=== PATIENT | female | born 1985 ===

== ENCOUNTER 2017-04-17 23:04 | Emergency (ER) | payer MEDICAID, OTHER ==
[2017-04-17 23:08] VITALS: BMI 29.2
[2017-04-17 23:10] VITALS: TEMP 98
[2017-04-17 23:13] VITALS: RESP 16
--- NOTE | 2017-04-17 23:22 | ED PDOC ---
Arrival/HPI - General Chief Complaint: High Blood Pressure Time Seen by Provider: 04/17/17 23:07 Historian: Patient - History of Present Illness Narrative History of Present Illness (Text): 04/17/17 23:22 Pau Guzman is a 32 year old female who presents to the Emergency department complaining of hypertension today. Patient states she was seen at an Urgent Care earlier today for high blood pressure with associated headache earlier today and was prescribed Naproxen. Patient states headache returned tonight and she presented for further evaluation. Patient reports an episode of left-sided chest pain yesterday, but denies any currently. Patient also reports abdominal pain, back pain, and a cyst to her wrist with discomfort to the area. Patient denies any fever, chills, shortness of breath, nausea, vomiting, diarrhea, urinary symptoms, neck pain, vision changes, dizziness, focal neurological deficits, or any other complaints. Symptom Onset: Gradual Symptom Course: Unchanged Activities at Onset: Light Context: Home Past Medical History - Provider Review Nursing Documentation Reviewed: Yes - Past History Past History: No Previous - Infectious Disease Hx of Infectious Diseases: None - Tetanus Immunization Tetanus Immunization: Unknown - Past Medical History Past Medical History: No Previous - Psychiatric Hx Substance Use: No - Past Surgical History Past Surgical History: No Previous - Surgical History Hx Section: Yes - Suicidal Assessment Feels Threatened In Home Enviroment: No Family/Social History - Physician Review Nursing Documentation Reviewed: Yes Family/Social History: Unknown Family HX Smoking Status: Never Smoked Hx Alcohol Use: No Hx Substance Use: No Hx Substance Use Treatment: No Allergies/Home Meds Allergies/Adverse Reactions: Allergies No Known Allergies Allergy (Verified 04/17/17 23:08) Review of Systems - Physician Review All systems were reviewed & negative as marked: Yes - Review of Systems Constitutional: Normal. absent: Fevers Eyes: Normal ENT: Normal Respiratory: Normal. absent: SOB, Cough Cardiovascular: Chest Pain Gastrointestinal: Abdominal Pain. absent: Diarrhea, Nausea, Vomiting Genitourinary Female: Normal. absent: Dysuria, Frequency, Hematuria, Urine Output Changes Musculoskeletal: Back Pain. absent: Neck Pain Skin: Other (+right wrist lump). absent: Rash Neurological: Normal. absent: Headache, Dizziness Endocrine: Normal Hemo/Lymphatic: Normal Psychiatric: Normal Physical Exam Vital Signs Reviewed: Yes Vital Signs Temp Pulse Resp BP Pulse Ox 04/18/17 02:11 78 16 132/89 100 04/18/17 01:27 74 145/93 H 04/18/17 00:49 68 16 149/102 H 100 04/17/17 23:10 98.0 F 77 16 152/99 H 99 04/17/17 23:09 98.0 F 76 18 152/99 H 99 Temperature: Afebrile Blood Pressure: Hypertensive Pulse: Regular Respiratory Rate: Normal Appearance: Positive for: Well-Appearing, Non-Toxic, Comfortable Pain Distress: None Mental Status: Positive for: Alert and Oriented X 3 - Systems Exam Head: Present: Atraumatic, Normocephalic Pupils: Present: PERRL Extroacular Muscles: Present: EOMI Conjunctiva: Present: Normal Mouth: Present: Moist Mucous Membranes Neck: Present: Normal Range of Motion. No: Meningeal Signs, MIDLINE TENDERNESS , Paraspinal Tenderness Respiratory/Chest: Present: Clear to Auscultation, Good Air Exchange. No: Respiratory Distress, Accessory Muscle Use Cardiovascular: Present: Regular Rate and Rhythm, Normal S1, S2. No: Murmurs Abdomen: Present: Normal Bowel Sounds. No: Tenderness, Distention, Peritoneal Signs Back: Present: Normal Inspection. No: CVA Tenderness, Midline Tenderness, Paraspinal Tenderness Upper Extremity: Present: Normal ROM, NORMAL PULSES, Neurovascularly Intact, Capillary Refill < 2s, Other (Right wrist ganglion cyst). No: Cyanosis, Edema, Tenderness, Erythema, Temperature Abnormalties, Deformity Lower Extremity: Present: Normal Inspection. No: Edema Neurological: Present: GCS=15, CN II-XII Intact, Speech Normal Skin: Present: Warm, Dry, Normal Color. No: Rashes Psychiatric: Present: Alert, Oriented x 3, Normal Insight, Normal Concentration Medical Decision Making ED Course and Treatment: 04/17/17 23:22 Impression: 32 year old female complaining of headache, high blood pressure, abdominal pain , chest pain, and back pain. Plan: -- EKG -- Labs, cardiac enzymes, amylase, lipase -- UA -- Reassess and disposition Progress Notes: 04/18/17 00:22 Reviewed EKG, NSR at [address]-segment elevations or depressions, no T-wave inversions, normal intervals. 04/18/17 01:26 Reviewed radiology, Chest X-ray shows no acute processes. XR Right Wrist shows no acute processes. 04/18/17 02:20 CT Head shows: Brain: No intracranial hemorrhage. No mass. No definite edema. Ventricles: No hydrocephalus. Bones/joints: No acute fracture. Soft tissues: Unremarkable. Sinuses: No acute sinusitis. Mastoid air cells: No mastoid effusion. Orbits: Unremarkable as visualized. IMPRESSION: 1. No definite acute intracranial abnormality. 04/18/17 02:23 On re-evaluation, patient feels better and is in no acute distress. I have discussed the results and plan with the patient, who expresses understanding. Patient in agreement with plan to be discharged home. Patient is stable for discharge. Patient was instructed to follow up with physician or return if symptoms worsen or new concerning symptoms arise. - Lab Interpretations Lab Results: 04/17/17 23:55 04/17/17 23:55 Lab Results 04/17/17 23:55: Sodium 139, Potassium 4.3, Chloride 103, Carbon Dioxide 26, Anion Gap 14, BUN 16, Creatinine 0.6 L, Est GFR ( Amer) > 60, Est GFR ( Non-Af Amer) > 60, Random Glucose 97, Calcium 9.8, Total Bilirubin 0.3, AST 29, ALT 35, Alkaline Phosphatase 59, Lactate Dehydrogenase 372, Total Creatine Kinase 88, Troponin I < 0.01, Total Protein 7.1, Albumin 4.1, Globulin 3.0, Albumin/Globulin Ratio 1.4, Amylase 54, Lipase 89 04/17/17 23:55: Urine Color Yellow, Urine Appearance Clear, Urine pH 7.0, Ur Specific [place] 1.010, Urine Protein Negative, Urine Glucose (UA) Negative, Urine Ketones Negative, Urine Blood Trace-intact H, Urine Nitrate Negative, Urine Bilirubin Negative, Urine Urobilinogen 0.2, Ur Leukocyte Esterase Negative , Urine RBC 0 - 2, Urine WBC 0 - 2, Ur Epithelial Cells 0 - 2 04/17/17 23:55: PT 10.4, INR 0.91 L, APTT 30.2 04/17/17 23:55: WBC 7.8, RBC 4.50, Hgb 12.8, Hct 37.8, MCV 84.0, MCH 28.4, MCHC 33.9, RDW 12.8, Plt Count 346, MPV 8.7, Gran % 48.8 L, Lymph % (Auto) 38.7 H, Hyde % (Auto) 9.2 H, Eos % (Auto) 3.0, Baso % (Auto) 0.3, Gran # 3.79, Lymph # ( Auto) 3.0, Hyde # (Auto) 0.7 H, Eos # (Auto) 0.2, Baso # (Auto) 0.02 I have reviewed the lab results: Yes - RAD Interpretation Radiology Orders: 04/18/17 00:06 HEAD W/O CONTRAST [CT] Stat 04/18/17 00:07 CHEST TWO VIEWS (PA/LAT) [RAD] Stat 04/18/17 00:08 WRIST, RIGHT 3 VIEWS [RAD] Stat Manager Pricing: ED Physician - EKG Interpretation Interpreted by ED Physician: Yes Type: 12 lead EKG - Medication Orders Current Medication Orders: Discontinued Medications Lisinopril (Zestril) 10 mg PO STAT STA Stop: 04/18/17 00:52 Last Admin: 04/18/17 01:27 Dose: 10 mg MAR Pulse and Blood Pressure Document 04/18/17 01:27 CNR (Rec: 04/18/17 01:27 CNR [id number]) Pulse Pulse Rate (60-90) 74 Blood Pressure Blood Pressure (100/60-150/90) 145/93 - Scribe Statement The provider has reviewed the documentation as recorded by the Scribyuko Ren All medical record entries made by the Scribe were at my direction and personally dictated by me. I have reviewed the chart and agree that the record accurately reflects my personal performance of the history, physical exam, medical decision making, and the department course for this patient. I have also personally directed, reviewed, and agree with the discharge instructions and disposition. Disposition/Present on Arrival - Present on Arrival Any Indicators Present on Arrival: No History of DVT/PE: No History of Uncontrolled Diabetes: No Urinary Catheter: No History of Decub. Ulcer: No History Surgical Site Infection Following: None - Disposition Have Diagnosis and Disposition been Completed?: Yes Diagnosis: Ganglion cyst of volar aspect of right wrist, Chest pain, Abdominal pain, Hypertension Disposition: HOME/ ROUTINE Disposition Time: 02:30 Condition: GOOD Discharge Instructions (ExitCare): Ganglion Cyst, High Blood Pressure in Adults , Chest Pain That Is Not Caused by the Heart (DC), Acute Abdomen (Belly Pain), Adult (DC) Print Language: GREEK Prescriptions: Lisinopril [Prinivil] 10 mg PO DAILY #14 tablet Referrals: [facility] [Outside] - Follow up with primary Forms: [employer] (Nepalese)
[2017-04-18 00:12] LABS: BASO # 0.02 K/mm3 (0.0-2.0); BASO % 0.3 % (0.0-3.0); EOS # 0.2 (0.0-0.7); GRAN # 3.79 (1.4-6.5); GRAN % 48.8 % (50.0-68.0); HEMOGLOBIN 12.8 g/dL (12.0-16.0); LYMPH % 38.7 % (22.0-35.0); MEAN CORPUSCULAR HEMOGLOBIN 28.4 pg (25.0-35.0); MEAN CORPUSCULAR HGB CONC 33.9 g/dl (31.0-37.0); MEAN PLATELET VOLUME 8.7 fl (7.0-11.0); MONO # 0.7 (0.1-0.6); MONO % 9.2 % (1.0-6.0); RBC 4.5 10^6/uL (3.5-6.1); RED CELL DISTRIBUTION WIDTH 12.8 % (11.5-14.5); WHITE BLOOD COUNT 7.8 10^3/ul (4.5-11.0)
[2017-04-18 00:13] LABS: URINE BILIRUBIN NEGATIVE (NEGATIVE); URINE BLOOD TRACE-INTACT (NEGATIVE); URINE GLUCOSE (UA) NEGATIVE (NEGATIVE); URINE LEUKOCYTE ESTERASE NEGATIVE Leu/uL (NEGATIVE); URINE NITRATE NEGATIVE (NEGATIVE); URINE PROTEIN NEGATIVE mg/dL (<30 mg/dL); URINE UROBILINOGEN 0.2 E.U./dL (<1 E.U./dL)
[2017-04-18 00:18] LABS: INR 0.91 (0.93-1.08); PARTIAL THROMBOPLASTIN TIME 30.2 Seconds (25.1-36.5); PROTHROMBIN TIME 10.4 SECONDS (9.4-12.5)
[2017-04-18 00:19] LABS: URINE APPEARANCE CLEAR (CLEAR); URINE COLOR YELLOW (YELLOW)
[2017-04-18 00:25] LABS: ALB/GLOB RATIO 1.4 (1.1-1.8); ALBUMIN 4.1 g/dL (3.0-4.8); ALT/SGPT 35 U/L (7-56); AMYLASE 54 U/L (35-125); AST/SGOT 29 U/L (14-36); BLOOD UREA NITROGEN 16 mg/dL (7-21); CALCIUM 9.8 mg/dL (8.4-10.5); GFR AFRICAN-AMERICAN > 60; GFR NON-AFRICAN AMERICAN > 60; LIPASE 89 U/L (23-300)
[2017-04-18 00:36] LABS: URINE EPITHELIAL CELLS 0 - 2 /hpf (0-5); URINE RBC 0 - 2 /hpf (0-2); URINE WBC 0 - 2 /hpf (0-6)
[2017-04-18 00:42] LABS: TROPONIN I < 0.01 ng/mL
[2017-04-18 00:50] VITALS: O2SAT 100
[2017-04-18 02:11] VITALS: BP 132/89; PULSE 78
--- NOTE | 2017-04-18 02:19 | CT ---
EXAM: CT Head Without Intravenous Contrast CLINICAL HISTORY: 32 years old, female; Pain; Headache; Additional info: NAVA TECHNIQUE: Axial computed tomography images of the head/brain without intravenous contrast. All CT scans at this facility use one or more dose reduction techniques, viz.: automated exposure control; ma/kV adjustment per patient size (including targeted exams where dose is matched to indication; i.e. head); or iterative reconstruction technique. Coronal and sagittal reformatted images were created and reviewed. COMPARISON: No relevant prior studies available. FINDINGS: Brain: No intracranial hemorrhage. No mass. No definite edema. Ventricles: No hydrocephalus. Bones/joints: No acute fracture. Soft tissues: Unremarkable. Sinuses: No acute sinusitis. Mastoid air cells: No mastoid effusion. Orbits: Unremarkable as visualized. IMPRESSION: 1. No definite acute intracranial abnormality.
--- NOTE | 2017-04-18 10:17 | RAD ---
HISTORY: COMPARISON: No prior. TECHNIQUE: Chest PA and lateral FINDINGS: LINES AND TUBES: None. LUNG AND PLEURA: The lungs are well inflated. There are streaky opacities in the lungs which may be related to chronic changes or reactive small airway disease. No focal consolidation. HEART AND MEDIASTINUM: The heart is not enlarged. The hilar and mediastinal contours are within normal limits. SKELETAL STRUCTURES: The bony structures are within normal limits for the patient's age. VISUALIZED UPPER ABDOMEN: Normal. OTHER FINDINGS: None. IMPRESSION: No acute findings.
--- NOTE | 2017-04-18 10:20 | CARD ---
APPROVED REPORT EKG Measurement Heart [id number] <Conclusion> Normal sinus rhythm Normal ECG
--- NOTE | 2017-04-18 11:05 | RAD ---
PROCEDURE: Right Wrist Radiographs. HISTORY: wrist pain COMPARISON: None. FINDINGS: BONES: Bone alignment and mineralization are normal. There is no acute displaced fracture or bone destruction. JOINTS: The proximal and distal carpal rows are maintained. No dislocation. SOFT TISSUES: Normal. OTHER FINDINGS: None. IMPRESSION: No acute fracture or dislocation.
== END 2017-04-18 02:31 | disposition home or self-care (01) ==
LOC: ED 23:04
DX: I10 Essential (primary) hypertension (principal); R07.9 Chest pain, unspecified; R10.9 Unspecified abdominal pain; M67.431 Ganglion, right wrist

== ENCOUNTER 2018-06-25 20:07 | Emergency (ER) | payer SELFPAY ==
[2018-06-25 20:16] VITALS: BMI 30.2
[2018-06-25 22:16] LABS: URINE BILIRUBIN NEGATIVE (NEGATIVE); URINE BLOOD LARGE (NEGATIVE); URINE GLUCOSE (UA) NEGATIVE (NEGATIVE); URINE LEUKOCYTE ESTERASE NEGATIVE Leu/uL (NEGATIVE); URINE PROTEIN NEGATIVE mg/dL (<30 mg/dL); URINE UROBILINOGEN 0.2 E.U./dL (<1 E.U./dL)
[2018-06-25 22:17] LABS: URINE APPEARANCE SL CLOUDY (CLEAR); URINE COLOR YELLOW (YELLOW)
[2018-06-25 22:24] LABS: URINE BACTERIA MOD /hpf; URINE RBC 25 - 30 /hpf (0-2)
--- NOTE | 2018-06-25 23:54 | ED PDOC ---
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 Patient states her menstrual cycle finished 3 days ago and shortly after that she developed a burning/irritation to the vagina. Patient is complaining of pruritus. She denies vaginal discharge or vaginal bleeding. Patient states 2 weeks ago she had slight dysuria. Patient denies hematuria. No abdominal pain. No back pain. No fevers or chills. No other complaints Patient states she ran out of her blood pressure medication and is requesting a refill of lisinopril 10 mg. Past Medical History - Provider Review Nursing Documentation Reviewed: Yes - Travel History Have you recently traveled outside [place] w/in the past 3 mons?: No - Past History Past History: No Previous - Infectious Disease Hx of Infectious Diseases: None - Tetanus Immunization Tetanus Immunization: Unknown - Past Medical History Past Medical History: No Previous - Cardiac Hx Hypertension: Yes - Psychiatric Hx Substance Use: No - Past Surgical History Past Surgical History: No Previous - Surgical History Hx Section: Yes (x2) - Suicidal Assessment Feels Threatened In Home Enviroment: No Family/Social History - Physician Review Nursing Documentation Reviewed: Yes Family/Social History: Unknown Family HX Smoking Status: Never Smoked Hx Alcohol Use: Yes Frequency of alcohol use: Socially Hx Substance Use: No Hx Substance Use Treatment: No Allergies/Home Meds Allergies/Adverse Reactions: Allergies No Known Allergies Allergy (Verified 06/25/18 20:16) Review of Systems - Review of Systems Constitutional: absent: Fatigue, Fevers Respiratory: absent: SOB, Cough Cardiovascular: absent: Chest Pain, Palpitations Gastrointestinal: absent: Abdominal Pain, Constipation, Diarrhea, Nausea, Vomiting Genitourinary Female: Dysuria, Other (Vaginal irritation/pruritus). absent: Hematuria, Vaginal Bleeding, Vaginal Discharge Musculoskeletal: absent: Arthralgias, Back Pain, Neck Pain Skin: Pruritis. absent: Rash Neurological: absent: Headache, Dizziness Psychiatric: absent: Anxiety, Depression, Suicidal Ideation Physical Exam Vital Signs Reviewed: Yes Vital Signs Temp Pulse Resp BP Pulse Ox 06/25/18 20:22 98.3 F 85 18 151/100 H 100 Temperature: Afebrile Blood Pressure: Hypertensive Pulse: Regular Respiratory Rate: Normal Appearance: Positive for: Well-Appearing, Non-Toxic, Comfortable Pain Distress: None Mental Status: Positive for: Alert and Oriented X 3 - Systems Exam Head: Present: Atraumatic Mouth: Present: Moist Mucous Membranes Neck: Present: Normal Range of Motion Respiratory/Chest: Present: Clear to Auscultation, Good Air Exchange. No: Respiratory Distress, Accessory Muscle Use Cardiovascular: Present: Regular Rate and Rhythm, Normal S1, S2. No: Murmurs Abdomen: No: Tenderness, Distention, Peritoneal Signs, Rebound, Guarding Genitourinary/Pelvic Exam: Present: Other (chaparoned by hank SALAZAR RN. ). No: Normal External Genitalia (slight irritation/edema/erythema), Vaginal Discharge, Vaginal Bleeding, Vaginal Lesions, Adenexal Tenderness, Adenexal Mass, Cervical Motion Tendernes, Cervical os Closed, Odor Back: Present: Normal Inspection. No: CVA Tenderness, Midline Tenderness, Paraspinal Tenderness Upper Extremity: Present: Normal ROM Lower Extremity: Present: Normal ROM Neurological: Present: GCS=15 Skin: Present: Warm, Dry, Normal Color Psychiatric: Present: Alert, Oriented x 3 Medical Decision Making ED Course and Treatment: 06/26/18 00:48 Patient is nontoxic well-appearing no distress with stable vital signs complaining of vaginal itch x3 days UA: Positive blood We will treat the patient with Keflex for possible UTI as well as Diflucan for vaginal irritation. I discussed all results in depth with the patient using the train starter telephone worker #[phone]. I have advised the patient of blood in the urine and possible urinary tract infection versus residual menstrual flow. Advised follow-up with urologist within the next 2 days. Have advised follow-up with a [employer] [facility] within the next 2 days. I advised follow-up with primary care physician within the next 2 days. Patient is requesting a refill of her blood pressure medication. I stressed the importance of follow-up with the medical clinic to continue to get blood pressure medications patient verbalizes understanding of discharge instructions and need for immediate followup.. All aspects of this case were discussed the attending of record. Impression: UTI, vaginal irritation Keflex 1 tablet twice daily follow-up with the [facility] professor within the next 2 days Followup with primary care physician within the next 2 days Follow up with the urologist for the next 2 days Return if symptoms worsen persist or if new symptoms develop - Lab Interpretations Lab Results: Urine Color Yellow (YELLOW) 06/25/18 22:05 Urine Appearance Sl cloudy (CLEAR) 06/25/18 22:05 Urine pH 6.0 (4.7-8.0) 06/25/18 22:05 Ur Specific [place] 1.010 (1.005-1.035) 06/25/18 22:05 Urine Protein Negative mg/dL (<30 mg/dL) 06/25/18 22:05 Urine Glucose (UA) Negative mg/dL (NEGATIVE) 06/25/18 22:05 Urine Ketones Negative mg/dL (NEGATIVE) 06/25/18 22:05 Urine Blood Large (NEGATIVE) H 06/25/18 22:05 Urine Nitrate Negative (NEGATIVE) 06/25/18 22:05 Urine Bilirubin Negative (NEGATIVE) 06/25/18 22:05 Urine Urobilinogen 0.2 E.U./dL (<1 E.U./dL) 06/25/18 22:05 Ur Leukocyte Esterase Negative Gabriela/uL (NEGATIVE) 06/25/18 22:05 Urine RBC 25 - 30 /hpf (0-2) H 06/25/18 22:05 Urine WBC 5 - 10 /hpf (0-6) H 06/25/18 22:05 Ur Epithelial Cells 10 - 12 /hpf (0-5) H 06/25/18 22:05 Urine Bacteria Mod /hpf (NONE) 06/25/18 22:05 - Medication Orders Current Medication Orders: Discontinued Medications Cephalexin Monohydrate (Keflex) 500 mg PO STAT STA; Protocol Stop: 06/25/18 23:32 Fluconazole (Diflucan) 150 mg PO STAT STA; Protocol Stop: 06/25/18 23:32 Disposition/Present on Arrival - Present on Arrival Any Indicators Present on Arrival: No History of DVT/PE: No History of Uncontrolled Diabetes: No Urinary Catheter: No History of Decub. Ulcer: No History Surgical Site Infection Following: None - Disposition Have Diagnosis and Disposition been Completed?: Yes Diagnosis: Urinary tract infection, Vaginal irritation Disposition: HOME/ ROUTINE Disposition Time: 23:30 Patient Plan: Discharge Patient Problems: Current Active Problems Problem Status Onset Urinary tract infection Acute Vaginal irritation Acute Condition: GOOD Discharge Instructions (ExitCare): Urinary Tract Infections in Adults Additional Instructions: Keflex 1 tablet twice daily follow-up with the [employer] professor within the next 2 days Followup with primary care physician within the next 2 days Follow up with the urologist for the next 2 days Return if symptoms worsen persist or if new symptoms develop Prescriptions: Cephalexin [Keflex] 500 mg PO BID #14 capsule Lisinopril [Prinivil] 10 mg PO DAILY #15 tablet Referrals: Red Ramsey MD [Staff Provider] - Follow up with primary Prasad Garcia MD [Staff Provider] - Follow up with primary Galina Ann MD [Medical Doctor] - Follow up with primary [employer] [facility] [Outside] - Follow up with primary Forms: [facility] [employer] (Maltese), WORK NOTE
[2018-06-26 01:07] VITALS: BP 142/99; PULSE 80; RESP 16; TEMP 96.8; O2SAT 99
== END 2018-06-26 01:09 | disposition home or self-care (01) ==
LOC: ED 20:07
DX: N39.0 Urinary tract infection, site not specified (principal); N89.8 Other specified noninflammatory disorders of vagina; I10 Essential (primary) hypertension